=== PATIENT | male | born 1950 | race African-American/Black ===

== ENCOUNTER 2021-01-16 23:56 | Emergency (ER) | payer SELFPAY ==
[~2021-01-16] VITALS: Ht 185.4 cm; Wt 82.0 kg
[2021-01-17] MEDS ORDERED: IBUPROFEN 400MG TABLET PO ONE (00:45)
[2021-01-17] MEDS ORDERED: HYDROCODONE/ACETAMINOPHEN 5/325MG TABLET PO ONE (00:45)
[2021-01-17] MEDS ORDERED: IBUP-2028 MT (01:36)
[2021-01-17 02:25] VITALS: BP 137/89
== END 2021-01-17 03:02 | disposition home or self-care (01) ==
LOC: ER 23:56
DX: M79.661 Pain in right lower leg (principal); M79.662 Pain in left lower leg; F99 Mental disorder, not otherwise specified
CPT/HCPCS: 99283

== ENCOUNTER 2021-11-25 15:13 | Inpatient (IN) | payer MEDICARE, MEDICAID ==
[~2021-11-25] VITALS: Ht 185.4 cm; Wt 76.3 kg
[~2021-11-25 15:13] MED LIST: IBUP-2028 MT
[2021-11-25] MEDS ORDERED: IPRATROPIUM BROMIDE (0.02%) 0.5MG/2.5ML NEB HHN STA ×2 (15:23→19:58)
[2021-11-25] MEDS ORDERED: METHYLPREDNISOLONE SOD SUCC 125 MG/2 ML VIAL IV STA (15:23)
[2021-11-25] MEDS ORDERED: MAGNESIUM 2 G PREMIX 50 ML IV ONE (15:30)
[2021-11-25 16:58] LABS: MEAN CORPUSCULAR HEMOGLOBIN 23.5 pg (28.0-32.0); MEAN CORPUSCULAR VOLUME 77.5 fL (80.0-94.0); MEAN PLATELET VOLUME 7.9 fl (7.4-10.4); PLATELET 454 x1000/uL (130-400); RED BLOOD CELL COUNT 4.26 mill/uL (4.7-6.1); RED CELL DISTRIBUTION WIDTH 19.7 % (11.6-14.6)
[2021-11-25 17:05] LABS: CHLORIDE 93 mEq/L (98-107)
[2021-11-25] MEDS ORDERED: ALBUTEROL 6.7GM HFA INHALER ORI NR (17:30)
[2021-11-25 17:57] LABS: PLATELET ESTIMATE INCREASED
[2021-11-25] MEDS: ALBUTEROL (0.083%) 2.5MG/3ML NEB HHN SCH (19:10)
[2021-11-25] MEDS ORDERED: ATROV INH (19:43)
[2021-11-25] MEDS ORDERED: P50 MT (19:43)
[2021-11-25] MEDS ORDERED: ALBU6.7H9 INH (19:43)
[2021-11-25] MEDS ORDERED: ALBUTEROL (0.083%) 2.5MG/3ML NEB HHN SCH (20:00)
[2021-11-25 23:47] LABS: BG BASE EXCESS 18.4 mmol/L (-2.0-2.0); BG CARBOXYHEMOGLOBIN 0.8 % (0.5-1.5); BG DEOXYHEMOGLOBIN 0.1 % (0.0-5.0); BG FRACTION INSPIRED OXYGEN 100; BG HCO3 ACT 50.5 mmol/L (22.0-26.0); BG METHEMOGLOBIN 0.5 % (0.0-1.5); BG OXYGEN SATURATION 99.9 % (92.0-98.5); BG OXYHEMOGLOBIN 98.6 % (94.0-97.0); BG PH 7.228 (7.350-7.450); BG PO2 320.7 mmHg (75.0-100.0); BG SAMPLE SITE RIGHT RADIAL; BG VENT MODE MASK - BIPAP
[2021-11-26] VITALS (9 sets, daily range): BP systolic 111–130; BP diastolic 24–79
[2021-11-26] MEDS ORDERED: CLONIDINE 0.1MG TABLET PO PRN
[2021-11-26] MEDS ORDERED: ACETAMINOPHEN 325MG TABLET PO PRN
[2021-11-26] MEDS ORDERED: IPRATROPIUM/ALBUTEROL 0.5-3(2.5)MG/3ML NEB NEB PRN
[2021-11-26] MEDS ORDERED: MAGNESIUM/ALUMINUM HYDROXIDE/SIMETHICONE 30ML UDC PO PRN
[2021-11-26] MEDS ORDERED: ONDANSETRON HCL 4MG/2ML INJ IV PRN
[2021-11-26] MEDS ORDERED: NALOXONE HCL 0.4MG/ML VIAL IV PRN (00:15)
[2021-11-26] MEDS: IPRATROPIUM/ALBUTEROL 0.5-3(2.5)MG/3ML NEB NEB SCH ×5 (02:33→20:21)
[2021-11-26 02:47] LABS: HEMOGLOBIN. 9.6 g/dL (14.0-18.0); MEAN CORPUSCULAR HEMOGLOBIN 22.6 pg (28.0-32.0); MEAN CORPUSCULAR VOLUME 77.6 fL (80.0-94.0); MEAN PLATELET VOLUME 8.4 fl (7.4-10.4); PLATELET 435 x1000/uL (130-400); RED BLOOD CELL COUNT 4.26 mill/uL (4.7-6.1); RED CELL DISTRIBUTION WIDTH 19.6 % (11.6-14.6)
[2021-11-26 02:51] LABS: CHLORIDE 93 mEq/L (98-107)
[2021-11-26 02:56] LABS: PHOSPHORUS 3.2 mg/dL (2.5-4.9)
[2021-11-26 07:15] LABS: PLATELET ESTIMATE SLIGHTLY INCREASED
[2021-11-26 11:28] LABS: BG BASE EXCESS 14.4 mmol/L (-2.0-2.0); BG CARBOXYHEMOGLOBIN 0.3 % (0.5-1.5); BG DEOXYHEMOGLOBIN 7.2 % (0.0-5.0); BG FRACTION INSPIRED OXYGEN 35; BG HCO3 ACT 41.5 mmol/L (22.0-26.0); BG METHEMOGLOBIN 0.3 % (0.0-1.5); BG OXYGEN SATURATION 92.8 % (92.0-98.5); BG OXYHEMOGLOBIN 92.2 % (94.0-97.0); BG PCO2 67.8 mmHg (35.0-45.0); BG PH 7.405 (7.350-7.450); BG PO2 63.5 mmHg (75.0-100.0); BG SAMPLE SITE LEFT RADIAL; BG TOTAL HEMOGLOBIN 10.4 g/dL (12.0-18.0); BG TOTAL RESPIRATORY RATE 22 b/min; BG VENT MODE MASK - BIPAP
[2021-11-26] MEDS: ENOXAPARIN 40MG/0.4ML SYR SUBCUT SCH (11:48)
[2021-11-26] MEDS: HYDROXYZINE 25MG TABLET PO PRN (23:01)
[2021-11-27] VITALS (10 sets, daily range): BP systolic 92–144; BP diastolic 54–85
[2021-11-27] MEDS: PREDNISONE 20MG TABLET PO SCH ×2 (00:17→08:45)
[2021-11-27] MEDS: IPRATROPIUM/ALBUTEROL 0.5-3(2.5)MG/3ML NEB NEB SCH ×6 (00:59→20:39)
[2021-11-27 06:55] LABS: CHLORIDE 93 mEq/L (98-107)
[2021-11-27 07:02] LABS: HEMOGLOBIN. 9.5 g/dL (14.0-18.0); MEAN CORPUSCULAR HEMOGLOBIN 23.6 pg (28.0-32.0); MEAN CORPUSCULAR VOLUME 76.7 fL (80.0-94.0); MEAN PLATELET VOLUME 8.3 fl (7.4-10.4); PLATELET 437 x1000/uL (130-400); RED BLOOD CELL COUNT 4.04 mill/uL (4.7-6.1); RED CELL DISTRIBUTION WIDTH 19.5 % (11.6-14.6)
[2021-11-27 07:04] LABS: PHOSPHORUS 2.5 mg/dL (2.5-4.9)
[2021-11-27] MEDS: GUAIFENESIN 200MG/10ML SUGAR FREE UDC PO PRN ×2 (08:45→23:48)
[2021-11-27] MEDS: ENOXAPARIN 40MG/0.4ML SYR SUBCUT SCH (08:46)
[2021-11-27 09:52] LABS: PLATELET ESTIMATE INCREASED
[2021-11-27 09:53] LABS: BG BASE EXCESS 12.9 mmol/L (-2.0-2.0); BG CARBOXYHEMOGLOBIN 0.3 % (0.5-1.5); BG DEOXYHEMOGLOBIN 6.4 % (0.0-5.0); BG HCO3 ACT 40.2 mmol/L (22.0-26.0); BG METHEMOGLOBIN 0.8 % (0.0-1.5); BG OXYGEN SATURATION 93.5 % (92.0-98.5); BG OXYHEMOGLOBIN 92.5 % (94.0-97.0); BG PCO2 68.9 mmHg (35.0-45.0); BG PH 7.384 (7.350-7.450); BG PO2 70.2 mmHg (75.0-100.0); BG SAMPLE SITE RIGHT BRACHIAL; BG TOTAL HEMOGLOBIN 10.2 g/dL (12.0-18.0); BG VENT MODE MASK - BIPAP
[2021-11-27] MEDS: HYDROXYZINE 25MG TABLET PO PRN (23:48)
[2021-11-27] MEDS: HYDROCODONE/ACETAMINOPHEN 5/325MG TABLET PO PRN (23:48)
[2021-11-28] VITALS (10 sets, daily range): BP systolic 124–160; BP diastolic 63–99
[2021-11-28] MEDS: IPRATROPIUM/ALBUTEROL 0.5-3(2.5)MG/3ML NEB NEB SCH ×8 (00:14→23:45)
[2021-11-28] MEDS: GUAIFENESIN 200MG/10ML SUGAR FREE UDC PO PRN ×2 (04:50→09:45)
[2021-11-28 07:12] LABS: CHLORIDE 96 mEq/L (98-107); HEMATOCRIT. 30.1 % (42.0-52.0); HEMOGLOBIN. 9.1 g/dL (14.0-18.0); MEAN PLATELET VOLUME 8.3 fl (7.4-10.4); PLATELET 435 x1000/uL (130-400); RED BLOOD CELL COUNT 3.96 mill/uL (4.7-6.1); RED CELL DISTRIBUTION WIDTH 19.2 % (11.6-14.6)
[2021-11-28 07:21] LABS: PHOSPHORUS 3.6 mg/dL (2.5-4.9); TOTAL IRON BINDING CAPACITY 351 ug/dL (250-450)
[2021-11-28 08:15] LABS: FOLIC ACID (FOLATE) SERUM 12.1 ng/mL (>5.38)
[2021-11-28] MEDS: ENOXAPARIN 40MG/0.4ML SYR SUBCUT SCH ×3 (09:00→09:50)
[2021-11-28] MEDS: PREDNISONE 20MG TABLET PO SCH (09:45)
[2021-11-28] MEDS: HYDROCODONE/ACETAMINOPHEN 5/325MG TABLET PO PRN (09:55)
[2021-11-28 12:48] LABS: PLATELET ESTIMATE INCREASED
[2021-11-28 12:52] LABS: BG BASE EXCESS 15.1 mmol/L (-2.0-2.0); BG CARBOXYHEMOGLOBIN 0.3 % (0.5-1.5); BG DEOXYHEMOGLOBIN 3.1 % (0.0-5.0); BG HCO3 ACT 44.5 mmol/L (22.0-26.0); BG METHEMOGLOBIN 0.3 % (0.0-1.5); BG OXYGEN SATURATION 96.9 % (92.0-98.5); BG OXYHEMOGLOBIN 96.3 % (94.0-97.0); BG PCO2 92.1 mmHg (35.0-45.0); BG PH 7.302 (7.350-7.450); BG PO2 94.3 mmHg (75.0-100.0); BG SAMPLE SITE RIGHT RADIAL; BG TOTAL HEMOGLOBIN 10.1 g/dL (12.0-18.0); BG VENT MODE MASK - BIPAP
[2021-11-28] MEDS: FERROUS SULFATE 325MG TABLET PO SCH (16:39)
[2021-11-28] MEDS: METHYLPREDNISOLONE SOD SUCC 40 MG/ML VIAL IV SCH ×2 (16:40→22:34)
[2021-11-28] MEDS: HYDROXYZINE 25MG TABLET PO PRN (23:40)
[2021-11-29] VITALS (15 sets, daily range): BP systolic 107–174; BP diastolic 65–97
[2021-11-29] MEDS: GUAIFENESIN 200MG/10ML SUGAR FREE UDC PO PRN ×2 (04:02→14:19)
[2021-11-29] MEDS: IPRATROPIUM/ALBUTEROL 0.5-3(2.5)MG/3ML NEB NEB SCH ×5 (04:27→20:24)
[2021-11-29] MEDS: METHYLPREDNISOLONE SOD SUCC 40 MG/ML VIAL IV SCH ×3 (06:03→14:15)
[2021-11-29 06:43] LABS: HEMATOCRIT. 31.7 % (42.0-52.0); HEMOGLOBIN. 9.5 g/dL (14.0-18.0); MEAN PLATELET VOLUME 8.2 fl (7.4-10.4); PLATELET 445 x1000/uL (130-400); RED BLOOD CELL COUNT 4.11 mill/uL (4.7-6.1); RED CELL DISTRIBUTION WIDTH 19.6 % (11.6-14.6)
[2021-11-29 07:19] LABS: CHLORIDE 95 mEq/L (98-107)
[2021-11-29 07:28] LABS: PHOSPHORUS 3.3 mg/dL (2.5-4.9)
[2021-11-29] MEDS: ENOXAPARIN 40MG/0.4ML SYR SUBCUT SCH (09:26)
[2021-11-29 09:36] LABS: BG BASE EXCESS 12.1 mmol/L (-2.0-2.0); BG CARBOXYHEMOGLOBIN 0.3 % (0.5-1.5); BG DEOXYHEMOGLOBIN 4.1 % (0.0-5.0); BG FRACTION INSPIRED OXYGEN 40; BG HCO3 ACT 41.4 mmol/L (22.0-26.0); BG METHEMOGLOBIN 0.1 % (0.0-1.5); BG OXYGEN SATURATION 95.9 % (92.0-98.5); BG OXYHEMOGLOBIN 95.5 % (94.0-97.0); BG PCO2 87.7 mmHg (35.0-45.0); BG PH 7.292 (7.350-7.450); BG SAMPLE SITE RIGHT RADIAL; BG TOTAL HEMOGLOBIN 10.4 g/dL (12.0-18.0); BG VENT MODE MASK - BIPAP
[2021-11-29 17:27] LABS: BG BASE EXCESS 14.6 mmol/L (-2.0-2.0); BG CARBOXYHEMOGLOBIN 0.2 % (0.5-1.5); BG DEOXYHEMOGLOBIN 6.2 % (0.0-5.0); BG FRACTION INSPIRED OXYGEN 50; BG METHEMOGLOBIN 0.4 % (0.0-1.5); BG OXYGEN SATURATION 93.8 % (92.0-98.5); BG OXYHEMOGLOBIN 93.2 % (94.0-97.0); BG PCO2 112.4 mmHg (35.0-45.0); BG PO2 75.8 mmHg (75.0-100.0); BG SAMPLE SITE RIGHT RADIAL; BG TOTAL HEMOGLOBIN 10.9 g/dL (12.0-18.0); BG VENT MODE MASK - VENTI
[2021-11-29] MEDS ORDERED: TERBUTALINE SULFATE 1MG/ML VIAL SUBCUT NR (18:00)
[2021-11-29 20:30] LABS: PLATELET ESTIMATE INCREASED
[2021-11-29] MEDS: HYDROXYZINE 25MG TABLET PO PRN (21:53)
[2021-11-30] VITALS (16 sets, daily range): BP systolic 127–161; BP diastolic 68–97
[2021-11-30] MEDS: IPRATROPIUM/ALBUTEROL 0.5-3(2.5)MG/3ML NEB NEB SCH ×6 (00:18→20:09)
[2021-11-30] MEDS: METHYLPREDNISOLONE SOD SUCC 40 MG/ML VIAL IV SCH ×3 (06:07→21:11)
[2021-11-30 06:48] LABS: HEMATOCRIT. 30.6 % (42.0-52.0); HEMOGLOBIN. 9.1 g/dL (14.0-18.0); MEAN CORPUSCULAR HEMOGLOBIN 23.1 pg (28.0-32.0); MEAN CORPUSCULAR VOLUME 77.8 fL (80.0-94.0); MEAN PLATELET VOLUME 7.9 fl (7.4-10.4); PLATELET 358 x1000/uL (130-400); RED BLOOD CELL COUNT 3.93 mill/uL (4.7-6.1); RED CELL DISTRIBUTION WIDTH 19.2 % (11.6-14.6)
[2021-11-30] MEDS: FERROUS SULFATE 325MG TABLET PO SCH (08:06)
[2021-11-30] MEDS: ENOXAPARIN 40MG/0.4ML SYR SUBCUT SCH (08:06)
[2021-11-30 09:47] LABS: BG BASE EXCESS 12.7 mmol/L (-2.0-2.0); BG CARBOXYHEMOGLOBIN 0.6 % (0.5-1.5); BG DEOXYHEMOGLOBIN 5.3 % (0.0-5.0); BG FRACTION INSPIRED OXYGEN 40; BG HCO3 ACT 42.4 mmol/L (22.0-26.0); BG METHEMOGLOBIN 0.2 % (0.0-1.5); BG OXYGEN SATURATION 94.7 % (92.0-98.5); BG OXYHEMOGLOBIN 93.9 % (94.0-97.0); BG PCO2 92.6 mmHg (35.0-45.0); BG PH 7.279 (7.350-7.450); BG PO2 75.9 mmHg (75.0-100.0); BG SAMPLE SITE RIGHT BRACHIAL; BG TOTAL HEMOGLOBIN 10.5 g/dL (12.0-18.0); BG TOTAL RESPIRATORY RATE 28 b/min; BG VENT MODE MASK - BIPAP
[2021-11-30 12:02] LABS: CHLORIDE 96 mEq/L (98-107)
[2021-11-30] MEDS ORDERED: TERBUTALINE SULFATE 1MG/ML VIAL SUBCUT NR (13:00)
[2021-11-30 13:16] LABS: CLARITY URINE CLEAR (CLEAR); COLOR URINE YELLOW (YELLOW); KETONES URINE NEGATIVE (NEGATIVE); LEUKOCYTE ESTERASE URINE TRACE (NEGATIVE); NITRITE URINE NEGATIVE (NEGATIVE); OCCULT BLOOD URINE NEGATIVE (NEGATIVE); PH URINE 5.5 (4.5-8.0); PROTEIN URINE TRACE (NEGATIVE); SPECIFIC GRAVITY URINE 1.021 (1.005-1.030); UROBILINOGEN URINE 0.2 E.U./dL (0.2-1.0)
[2021-11-30] MEDS: TAMSULOSIN HCL 0.4MG SR CAPSULE PO SCH (13:51)
[2021-11-30 16:58] LABS: PLATELET ESTIMATE NORMAL
[2021-12-01] VITALS (11 sets, daily range): BP systolic 123–163; BP diastolic 70–94
[2021-12-01] MEDS: IPRATROPIUM/ALBUTEROL 0.5-3(2.5)MG/3ML NEB NEB SCH ×6 (00:44→20:16)
[2021-12-01] MEDS: METHYLPREDNISOLONE SOD SUCC 40 MG/ML VIAL IV SCH ×3 (05:11→22:31)
[2021-12-01] MEDS: TAMSULOSIN HCL 0.4MG SR CAPSULE PO SCH (09:28)
[2021-12-01] MEDS: ENOXAPARIN 40MG/0.4ML SYR SUBCUT SCH (09:28)
[2021-12-01 09:30] LABS: BG BASE EXCESS 13.8 mmol/L (-2.0-2.0); BG CARBOXYHEMOGLOBIN 0.6 % (0.5-1.5); BG DEOXYHEMOGLOBIN 2.7 % (0.0-5.0); BG FRACTION INSPIRED OXYGEN 44; BG HCO3 ACT 43.3 mmol/L (22.0-26.0); BG METHEMOGLOBIN 0.1 % (0.0-1.5); BG OXYGEN SATURATION 97.3 % (92.0-98.5); BG OXYHEMOGLOBIN 96.6 % (94.0-97.0); BG PCO2 91.1 mmHg (35.0-45.0); BG PH 7.295 (7.350-7.450); BG PO2 97.8 mmHg (75.0-100.0); BG SAMPLE SITE LEFT RADIAL; BG TOTAL HEMOGLOBIN 10.3 g/dL (12.0-18.0); BG VENT MODE NASAL CANNULA
[2021-12-01] MEDS: ACETAMINOPHEN 325MG TABLET PO PRN (12:37)
[2021-12-01] MEDS ORDERED: ALBU18HF2 IH (12:39)
[2021-12-01] MEDS ORDERED: TOPUD PO (12:39)
[2021-12-01] MEDS ORDERED: MED4 MT (12:39)
[2021-12-01] MEDS ORDERED: HYDR-3735 PO (12:39)
[2021-12-01] MEDS ORDERED: FERR-63 PO (12:39)
[2021-12-01] MEDS ORDERED: FLUT1DIS3 INH (12:39)
[2021-12-01] MEDS ORDERED: TAMS-11 PO (12:39)
[2021-12-01] MEDS ORDERED: TERBUTALINE SULFATE 1MG/ML VIAL SUBCUT NR (13:00)
[2021-12-02] VITALS (7 sets, daily range): BP systolic 133–164; BP diastolic 71–92
[2021-12-02] MEDS: ACETAMINOPHEN 325MG TABLET PO PRN (00:02)
[2021-12-02] MEDS: IPRATROPIUM/ALBUTEROL 0.5-3(2.5)MG/3ML NEB NEB SCH ×5 (00:52→17:00)
[2021-12-02] MEDS: METHYLPREDNISOLONE SOD SUCC 40 MG/ML VIAL IV SCH ×2 (05:41→14:05)
[2021-12-02] MEDS: TAMSULOSIN HCL 0.4MG SR CAPSULE PO SCH (09:13)
[2021-12-02] MEDS: FERROUS SULFATE 325MG TABLET PO SCH (09:13)
[2021-12-02] MEDS: ENOXAPARIN 40MG/0.4ML SYR SUBCUT SCH (09:13)
[2021-12-02 09:18] LABS: BG CARBOXYHEMOGLOBIN 0.4 % (0.5-1.5); BG DEOXYHEMOGLOBIN 7.5 % (0.0-5.0); BG FRACTION INSPIRED OXYGEN 36; BG HCO3 ACT 45.6 mmol/L (22.0-26.0); BG METHEMOGLOBIN 0.3 % (0.0-1.5); BG OXYGEN SATURATION 92.4 % (92.0-98.5); BG OXYHEMOGLOBIN 91.8 % (94.0-97.0); BG PCO2 91.3 mmHg (35.0-45.0); BG PH 7.316 (7.350-7.450); BG PO2 68.3 mmHg (75.0-100.0); BG SAMPLE SITE RIGHT RADIAL; BG TOTAL HEMOGLOBIN 10.6 g/dL (12.0-18.0); BG VENT MODE NASAL CANNULA
[2021-12-02] MEDS ORDERED: AMLODIPINE 5MG TABLET PO SCH (09:30)
== END 2021-12-02 18:45 | disposition home health service (06) | DRG 140 ==
LOC: ER 15:13 → MICUSO 23:10 → SUPCPDRO 23:45 → 3WST 11-26 07:24
PROVIDERS: ADMIT Internal Medicine; ATTEND Internal Medicine
PROC: 5A09357 Assistance with Respiratory Ventilation, Less than 24 Consecutive Hours, Continuous Positive Airway Pressure (ICD-10-PCS; principal; 2021-11-25)
PROC: 5A09357 Assistance with Respiratory Ventilation, Less than 24 Consecutive Hours, Continuous Positive Airway Pressure (ICD-10-PCS; 2021-11-27)
PROC: 5A09457 Assistance with Respiratory Ventilation, 24-96 Consecutive Hours, Continuous Positive Airway Pressure (ICD-10-PCS; 2021-11-28)
PROC: 5A09357 Assistance with Respiratory Ventilation, Less than 24 Consecutive Hours, Continuous Positive Airway Pressure (ICD-10-PCS; 2021-11-30)
PROC: 5A09357 Assistance with Respiratory Ventilation, Less than 24 Consecutive Hours, Continuous Positive Airway Pressure (ICD-10-PCS; 2021-12-01)
PROC: 5A09357 Assistance with Respiratory Ventilation, Less than 24 Consecutive Hours, Continuous Positive Airway Pressure (ICD-10-PCS; 2021-12-02)
DX: J44.1 Chronic obstructive pulmonary disease with (acute) exacerbation (principal); J96.21 Acute and chronic respiratory failure with hypoxia; J45.901 Unspecified asthma with (acute) exacerbation; Z99.81 Dependence on supplemental oxygen; D50.9 Iron deficiency anemia, unspecified; D17.79 Benign lipomatous neoplasm of other sites; F14.90 Cocaine use, unspecified, uncomplicated; J96.22 Acute and chronic respiratory failure with hypercapnia; F17.210 Nicotine dependence, cigarettes, uncomplicated; D75.839 Thrombocytosis, unspecified; Z20.822 Contact with and (suspected) exposure to COVID-19; Z79.899 Other long term (current) drug therapy; Z79.1 Long term (current) use of non-steroidal anti-inflammatories (NSAID); Z79.51 Long term (current) use of inhaled steroids
CPT/HCPCS: 36415; 36600; 71045; 80048; 80053; 81003; 82375; 82607; 82728; 82746; 82805; 83540; 83550; 83735; 83880; 84100; 84443; 84484; 85025; 87426; 93005; 94660; 97161; 97165; 99285; J1650; J2405; J2920; J2930; J3105; J3475; J7512